=== PATIENT | male | born 1985 | race Asian ===

== ENCOUNTER 2021-04-19 14:11 | Emergency (ER) | payer OTHER ==
[~2021-04-19] VITALS: Ht 167.6 cm; Wt 68.2 kg
[2021-04-19 15:02] VITALS: BP 131/63
== END 2021-04-19 16:23 | disposition home or self-care (01) ==
LOC: EMS 15:13
DX: U07.1 COVID-19 (principal)
CPT/HCPCS: 99283; U0003